=== PATIENT | male | born 1960 | race Caucasian/White ===

== ENCOUNTER 2018-01-26 13:16 | Outpatient (CLI) | payer BC ==
[2018-01-26 14:08] LABS: #Eosinphils 0.2 thou/uL (0.0-0.7); #Lymphocytes 2.2 thou/uL (1.20-3.40); #Monocytes 1.1 thou/uL (0.11-0.59); %Basophils 0.2 % (0.0-1.0); %Eosinophils 1.6 % (0.0-10.0); %Monocytes 11.4 % (0.0-10.0); %Neutrophils 63.7 % (42.0-75.0); Hemoglobin 14.8 g/dL (14.0-18.0); Mean Corpuscular HGB CONC 35.2 g/dL (32.0-36.0); Mean Corpuscular Volume 90.9 fl (80.0-94.0); Mean Platelet Volume 7.5 fL (7.4-10.4); Platelet Count 176 thou/uL (130-400); Red Blood Cell (RBC) Count 4.62 mill/uL (4.70-6.10); White Blood Cell (WBC) Count 9.5 thou/uL (4.8-10.8)
[2018-01-26 14:41] LABS: Anion Gap 12 mmol/L (10-20); BUN (Urea Nitrogen) 20 mg/dL (8.4-25.7); Calc. Creatinine Clearance 0 mL/min (70-130); Calcium 9.1 mg/dL (7.8-10.44); Carbon Dioxide 26 mmol/L (22-29); Chloride 104 mmol/L (98-107); Estimated GFR-MDRD 76; Glucose 98 mg/dL (70-105); Potassium 3.9 mmol/L (3.5-5.1); Sodium 138 mmol/L (136-145)
== END 2018-01-26 13:17 | disposition home or self-care (01) ==
LOC: LABBT 13:16
PROVIDERS: ATTEND Specialist
DX: Z01.812 Encounter for preprocedural laboratory examination (principal); K42.9 Umbilical hernia without obstruction or gangrene
CPT/HCPCS: 80048; 85025

== ENCOUNTER 2018-02-02 05:44 | Day surgery (SDC) | payer BC ==
[2018-01-26 13:31] VITALS: BMI 33.0
--- NOTE | 2018-01-31 08:51 | HP ---
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 Umbilical h ernia for several years. Recently last two months more bothersome and painful. He desires repair. Plan is robotic mesh repair of umbilical hernia. ALLERGIES: None. TOBACCO: None. ALCOHOL: None. MEDICATIONS: None. PAST MEDICAL HISTORY: Vasectomy. PAST MEDICAL HISTORY: Noncontributory. REVIEW OF SYSTEMS: Ten point noncontributory. He is due for colonoscopy and has not had one today. PHYSICAL EXAMINATION: VITAL SIGNS: 143/82, 65, 99.1 degrees. HEENT: Unremarkable. LUNGS: Clear to auscultation. CARDIAC: Regular rate and rhythm without murmur or gallop. ABDOMEN: Soft. Umbilical hernia, reducible small defect. EXTREMITIES: Unremarkable. Standing evaluation reveals normal testicles. No groin hernias, right o r left, standing Valsalva evaluated. EXTREMITIES: Unremarkable. No ankle edema. NEUROLOGIC: Intact. ASSESSMENT AND PLAN: Umbilical hernia, symptomatic. Plan robotic mesh repair. He understands the r isks of infection, bleeding, reoperation, recurrence, and consents.
[2018-02-02] MEDS ORDERED: CEFAZOLIN/Water 2 GM/20 ML SYRINGE ONE (06:19)
[2018-02-02] MEDS ORDERED: Ketorolac Tromethamine 30 MG/ML VIAL ONE (06:19)
[2018-02-02] MEDS ORDERED: Bupivacaine HCl 0.5%/Epinephrine 1:200,000/PF 30 ml Vial ONE (06:21)
[2018-02-02] MEDS ORDERED: Fentanyl 100 MCG/2 ML VIAL ONE ×2 (06:48→09:18)
--- NOTE | 2018-02-02 12:43 | OP ---
DATE OF PROCEDURE: 02/02/2018 PREOPERATIVE DIAGNOSIS: Umbilical hernia. POSTOPERATIVE DIAGNOSES: Umbilical hernia with two adjacent defects, incarcerated omentum. PROCEDURE PERFORMED: Robotic umbilical hernia repair with primary Stratafix closure of the defect an d Ventralight 11 cm round mesh coverage. SURGEON: Dr. Vasyl Casillas. ANESTHESIA: General, local 0.5% Marcaine with epinephrine, 30 mL. DESCRIPTION OF PROCEDURE: The patient was taken to the operating room where under general anesthesia , abdomen was prepared with ChloraPrep, draped in routine fashion. Pneumoperitoneum established with an incision subxiphoid using the Veress needle, establishing pneumoperitoneum to 15 mmHg replacing w ith an 11 port and placing the camera and placing the remainder ports under visualization. The midcl avicular lines bilateral subcostal made and an 8 mm ports placed. Robot was docked and robotic umbil ical hernia repair undertaken. Robotically, the incarcerated omentum was taken down and freed using cautery energy source. Fatty tissue and peritoneum taken down from the fascial defect. Umbilical he rnia defect noted with an adjacent ventral hernia defect to the patient's left and another one smalle r to the left. Once this was cleared of fat and peritoneum, the fascia was closed with continuous lopez ture of 0 Stratafix. A 11 cm round mesh placed intraabdominally approximated to the fascia, held in place with the approximation needle from the Stratafix. This was tacked in the midline. A circumfer ential suture of 3-0 V-Loc performed fixating the mesh to the abdominal wall, removing the sutures an d inspected the mesh noted to have good coverage of the hernia defect. A gauze dressing placed over the umbilicus. The patient tolerated the procedure well without complications. His pneumoperitoneum reduced. All instruments removed and midline subxiphoid fascia approximated with 0 Vicryl UR needle . All skin incisions approximated with subdermal 4-0 Monocryl. The patient tolerated the procedure well.
[2018-02-02] MEDS ORDERED: Dexamethasone 20 MG/5 ML VIAL ONE (18:04)
[2018-02-02] MEDS ORDERED: Glycopyrrolate 0.2 MG/ML 5 ML SYRINGE ONE (18:04)
[2018-02-02] MEDS ORDERED: Ondansetron HCl/PF 4 MG/2 ML Vial ONE (18:04)
[2018-02-02] MEDS ORDERED: Lidocaine 1% PF 5 ML VIAL ONE (18:04)
[2018-02-02] MEDS ORDERED: ePHEDrine/0.9% NaCl/PF SYRINGE 50 mg/10 ml ONE (18:04)
[2018-02-02] MEDS ORDERED: PROPOFOL 200 MG/20 ML VIAL ONE (18:04)
[2018-02-02] MEDS ORDERED: PHENYLEPHRINE-NS 100 MCG/ML 10 ML SYRINGE ONE (18:04)
== END 2018-02-02 12:36 | disposition home or self-care (01) ==
LOC: SDC 05:44
PROVIDERS: ATTEND Specialist
PROC: 0WUF4JZ Supplement Abdominal Wall with Synthetic Substitute, Percutaneous Endoscopic Approach (ICD-10-PCS; principal; 2018-02-02)
DX: K42.0 Umbilical hernia with obstruction, without gangrene (principal)
CPT/HCPCS: 96374; C1781; J0131; J0670; J1100; J1885; J2001; J2405; J2704; J3010

== ENCOUNTER 2024-01-15 11:44 | Inpatient (IN) | payer BC ==
[2024-01-15] MEDS ORDERED: Mag-Al 1200 mg/1200 mg/30 ML UDCUP PO PRN (12:56)
[2024-01-15] MEDS ORDERED: Milk Of Magnesia 30 ML UDCUP PO PRN (12:56)
[2024-01-15] MEDS ORDERED: Ondansetron PF 4 MG/2 ML Vial IVP PRN (12:56)
[2024-01-15] MEDS ORDERED: Morphine 2 MG/ML VIAL SLOW IVP PRN (12:56)
[2024-01-15] MEDS ORDERED: diphenhydrAMINE 50 MG/ML VIAL IVP PRN (12:56)
[2024-01-15] MEDS ORDERED: traMADol HCl 50 MG TAB PO PRN (12:56)
[2024-01-15] MEDS ORDERED: Cyclobenzaprine 10 MG TAB PO PRN (12:56)
[2024-01-15] MEDS ORDERED: Acetaminophen/Codeine 30-300mg Tablet PO PRN ×2 (12:56)
[2024-01-15] MEDS ORDERED: hydrALAZINE 20 MG/ML VIAL SLOW IVP PRN (12:59)
[2024-01-15] MEDS ORDERED: Labetalol HCl 100 MG/20 ML VIAL SLOW IVP PRN (13:00)
[2024-01-15 13:52] LABS: #Basophils Less than 0.03 10x3/uL (0.0-0.2); #Eosinphils Less than 0.03 10x3/uL (0.0-0.7); %Basophils 0.3 % (0.0-1.0); %Eosinophils 0.1 % (0.0-10.0); %Lymphocytes 13.1 % (21.0-51.0); %Monocytes 2.1 % (0.0-10.0); %Neutrophils 84.1 % (42.0-75.0); Hematocrit 44.7 % (42.0-52.0); Hemoglobin 15.4 g/dL (14.0-18.0); Mean Corpuscular HGB CONC 34.5 g/dL (32.0-36.0); Mean Corpuscular Volume 89.9 fL (78.0-98.0); Mean Platelet Volume 10.4 fL (7.4-10.4); Platelet Count 197 10x3/uL (130-400); RBC Distribution Width 12.5 % (11.5-14.5); Red Blood Cell (RBC) Count 4.97 mill/uL (4.70-6.10)
[2024-01-15 14:07] LABS: INR-International Normal Ratio 1.1; Prothrombin Time 14.1 sec (12.0-14.7)
[2024-01-15 14:12] LABS: Anion Gap 15 mmol/L (10-20); BUN (Urea Nitrogen) 11 mg/dL (8.4-25.7); Calc. Creatinine Clearance 0 mL/min (70-130); Calcium 9.6 mg/dL (7.8-10.44); Carbon Dioxide 24 mmol/L (23-31); Chloride 106 mmol/L (98-107); Estimated GFR 93; Glucose 149 mg/dL (80-115); Potassium 4.1 mmol/L (3.5-5.1); Sodium 141 mmol/L (136-145)
[2024-01-15 16:17] VITALS: BMI 33.0
[2024-01-15] MEDS: Dexamethasone 4 mg/ml Vial SLOW IVP SCH (17:05)
[2024-01-15] MEDS: Sodium Chloride 0.9% 1,000 ML IV SCH (17:07)
[2024-01-16] MEDS: Melatonin 3 MG TAB PO SCH (00:55)
[2024-01-16 05:23] VITALS: TEMP 98
[2024-01-16] MEDS: Pantoprazole DR 40 MG TAB PO SCH (08:18)
[2024-01-16 10:38] VITALS: BP 149/74
== END 2024-01-16 15:00 | disposition home or self-care (01) | DRG 52 ==
LOC: ERS 11:44 → IMCU/EMU 15:36
PROVIDERS: ADMIT Neurological Surgery; ATTEND Neurological Surgery
DX: S14.107A Unspecified injury at C7 level of cervical spinal cord, initial encounter (principal); G82.50 Quadriplegia, unspecified; T80.89XA Other complications following infusion, transfusion and therapeutic injection, initial encounter; I10 Essential (primary) hypertension
CPT/HCPCS: 36415; 72141; 72146; 80048; 85025; 85610; 85730; J1100; J7050